=== PATIENT | female | born 1990 | race Caucasian/White ===

== ENCOUNTER 2021-07-07 22:16 | Emergency (ER) | payer SELFPAY ==
[~2021-07-07] VITALS: Ht 153 cm; Wt 105.9 kg
[2021-07-07] MEDS ORDERED: FLUO40CA (23:15)
[2021-07-07 23:25] LABS: BILIRUBIN,URINE NEGATIVE (NEGATIVE); CLARITY,URINE CLEAR; COLOR,URINE YELLOW; GLUCOSE, URINE (UA) NEGATIVE (NEGATIVE); KETONES,URINE NEGATIVE (NEGATIVE); LEUKOCYTE ESTERASE ,URINE NEGATIVE (NEGATIVE); NITRITE,URINE NEGATIVE (NEGATIVE); PROTEIN,URINE NEGATIVE (NEGATIVE)
[2021-07-07 23:44] LABS: BACTERIA,URINE TRACE /HPF
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
[2021-07-07] MEDS ORDERED: CYCL10TA25 PO (23:54)
[2021-07-08 01:19] VITALS: BP 114/79
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
== END 2021-07-08 01:23 | disposition home or self-care (01) ==
LOC: ER 22:23
DX: M25.532 Pain in left wrist (principal); M79.632 Pain in left forearm; M62.830 Muscle spasm of back; R10.9 Unspecified abdominal pain; V49.40XA Driver injured in collision with unspecified motor vehicles in traffic accident, initial encounter; Y92.410 Unspecified street and highway as the place of occurrence of the external cause
CPT/HCPCS: 72128; 72131; 73090; 81000; 84703